=== PATIENT | female | born 1980 | race Caucasian/White ===

== ENCOUNTER 2021-02-21 07:53 | Emergency (ER) | payer OTHER ==
[~2021-02-21] VITALS: Ht 165.1 cm; Wt 63.0 kg
== END 2021-02-21 10:26 | disposition home or self-care (01) ==
LOC: ED 07:53
DX: K59.00 Constipation, unspecified (principal); Z88.0 Allergy status to penicillin
CPT/HCPCS: 74177; 76705; 80053; 81001; 83690; 84703; 85025; 96374; 96375; 99284-25; J1885; J2405; J7030; Q9967